=== PATIENT | male | born 1995 | race Caucasian/White ===

== ENCOUNTER 2017-05-25 17:31 | Emergency (ER) | payer BC ==
[2017-05-25] MEDS ORDERED: ACETAMINOPHEN 325 MG TAB PO ONE (17:55)
[2017-05-25] MEDS ORDERED: IBUPROFEN 600 MG TAB PO ONE (17:55)
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
[2017-05-25 19:12] VITALS: BP 117/79; PULSE 85; RESP 18; O2SAT 96
[2017-05-25 19:13] VITALS: TEMP 97.9
== END 2017-05-25 19:13 | disposition home or self-care (01) ==
DX: S70.01XA Contusion of right hip, initial encounter (principal); B35.9 Dermatophytosis, unspecified; V18.0XXA Pedal cycle driver injured in noncollision transport accident in nontraffic accident, initial encounter; Y99.8 Other external cause status; Y93.55 Activity, bike riding